=== PATIENT | male | born 2005 | race Two or more races ===

== ENCOUNTER 2025-04-28 16:31 | Emergency (ER) | payer MEDICAID, OTHER ==
[~2025-04-28] VITALS: Ht 177.8 cm; Wt 63.3 kg
--- NOTE | 2025-04-28 17:00 | ED.PDOC ---
Eye-HPI HPI Comments 19 year old male presents to the ED with a chief complaint of LT ear pain onset last night. Patient states he has bilateral ET tubes placed several years ago. Patient states he began experiencing LT ear itchiness, this morning noticed there was blood and purulent discharge. For the past few years he has been experiencing intermittent otitis media. Denies fever, chills, trauma, blurred vision, nausea, vomiting, diarrhea, hearing loss. No other symptoms or modifying factors present at this time. Chief Complaint: Earache Time Seen by MD: 16:50 Reviewed Notes: Medications, Allergies Allergies: Coded Allergies: Midazolam (Verified Allergy, Severe, 04/28/25) Information Source: Patient Mode of Arrival: Ambulatory Timing: Days Duration: Since onset Prehospital treatment: None Associated signs and symptoms: Ear Pain Past Medical History PAST MEDICAL HISTORY: Denies Surgical History: Denies all surgeries Family History Family History: Reviewed,noncontributory to illness, No family hx of Cancer, No family hx of DM, No family hx of Heart sharee, No family hx of HTN, No family hx ofKidney sharee, No family hx of Liver sharee, No family hx of Lung sharee, No family hx of Stroke Social History Smoker: Non-Smoker Alcohol: Denies ETOH Use Drugs: Denies Drug Use Lives In: Home Constitutional: denies: chills, diaphoresis, fatigue, fever, malaise, sweats, weakness, others EENTM: reports: ear discharge, ear drainage, ear pain; denies: blurred vision, double vision, ear bleeding, ear ringing, eye pain, eye redness, hearing loss, mouth pain, mouth swelling, nasal discharge, nose bleeding, nose congestion, nose pain, photophobia, tearing, throat pain, throat swelling, voice changes, others Respiratory: denies: cough, hemoptysis, orthopnea, SOB at rest, shortness of breath, SOB with excertion, stridor, wheezing, others Cardiovascular: denies: chest pain, dizzy spells, diaphoresis, Dyspnea on exertion, edema, irregular heart beat, left arm pain, lightheadedness, palpitations, PND, syncope, others Gastrointestinal: denies: abdomen distended, abdominal pain, blood streaked bowels, constipated, diarrhea, dysphagia, difficulty swallowing, hematemesis, melena, nausea, poor appetite, poor fluid intake, rectal bleeding, rectal pain, vomiting, others Genitourinary: denies: burning, dysuria, flank pain, frequency, hematuria, incontinence, penile discharge, penile sore, pain, testicle pain, testicle swel ling, urgency, others Neurological: denies: dizziness, fainting, headache, left sided numbness, left sided weakness, numbness, paresthesia, pre-existing deficit, right sided numbness, right sided weakness, seizure, speech problems, tingling, tremors, weakness, others Musculoskeletal: denies: back pain, gout, joint pain, joint swelling, muscle pain, muscle stiffness, neck pain, others Integumetry: denies: bruises, change in color, change in hair/nails, dryness, laceration, lesions, lumps, rash, wounds, others Allergic/Immunocompromised: denies: Difficulty Healing, Frequent Infections, Hives, Itching, others Hematologic/Lymphatic: denies: anemia, blood clots, easy bleeding, easy bruising, swollen glands, others Endocrine: denies: excessive hunger, excessive sweating, excessive thirst, excessive urination, flushing, intolerance to cold, intolerance to heat, unexplained weight gain, unexplained weight loss, others Psychiatric: denies: anxiety, bipolar disorder, depression, hopeless, panic disorder, schizophrenia, sleepless, suicidal, others All Other Systems: Reviewed and Negative Physical Exam General Appearance: Normal HEENT: Other (LT tM erythema, blood noted with purulent discharge. LT canal ET Tube appears in place, RT canal ET tube not visualized due to wax) Neck: Full Range of Motion, Non-Tender, Normal, Normal Inspection Respiratory: Chest Non-Tender, Lungs Clear, No Accessory Muscle Use, No Respiratory Distress, Normal Breath Sounds Cardiovascular: No Edema, No JVD, No Murmur, No Gallop, Normal Peripheral Pulses, Regular Rate/Rhythm Breast Exam: Deferred Gastrointestinal: No Organomegaly, Non Tender, No Pulsatile Mass, Normal Bowel Sounds, Soft Genitalia: Deferred Pelvic: Deferred Rectal: Deferred Extremities: No calf tenderness, Normal capillary refill, Normal inspection, Normal range of motion, Non-tender, No pedal edema Musculoskeletal : Apperance: Normal Neurologic: Alert, metalsmith II-XII nml as Tested, No Motor Deficits, Normal Affect, Normal Mood, No Sensory Deficits Cerebellar Function: Normal Reflexes: Normal Skin: Dry, Normal Color, Warm Lymphatic: No Adenopathy Was a procedure done? Was a procedure done?: No EENT DIFF Eye: Other X-Ray, Labs, Meds, VS Vital Signs Date Time Temp Pulse Resp B/P (MAP) Pulse Ox O2 Delivery O2 Flow Rate FiO2 04/28/25 16:33 97.9 91 15 142/81 99 97.9 X-Ray, Labs, Meds, VS Comment Imaging: X-rays and CT scans were reviewed and interpreted by this provider, imaging shows no fractures and no pathological disease. Pending radiology review. Laboratory: Labs reviewed and interpreted by this provider. No significant abnormalities noted. Patient has prior medical visits reviewed. Med reconciliation performed Vital signs reviewed Time of 1ST Reevaluation: 17:20 Reevaluation 1ST: Unchanged Patient Education/Counseling: Diagnosis, Treatment, Need For Follow Up (Follow up with PCP in next available appointment. Return to emergency department if symptoms worsen.) Family Education/Counseling: No Family Present SEPSIS Sepsis Screen Date sepsis recognized/suspect: Apr 28, 2025 Time Sepsis recognized/suspect: 1634 Recent Procedure: No On Antibiotic Therapy: No Respiratory Rate >20: No Heart Rate >90: No Temp<36 C (96.8 F) or >38.3 C: No SBP <90 or MAP <65 mmHG: No New Acute Mental Status Change: No Is the patient on CPAP, BIPAP,: No Vital Signs Date Time Temp Pulse Resp B/P (MAP) Pulse Ox O2 Delivery O2 Flow Rate FiO2 04/28/25 16:33 97.9 91 15 142/81 99 97.9 Departure 1 Departure Time of Disposition: 17:05 Impression: Primary Impression: Eustachian tube dysfunction Qualified Codes: H69.92 - Unspecified Eustachian tube disorder, left ear Additional Impression: Otitis externa Qualified Codes: H60.312 - Diffuse otitis externa, left ear Disposition: 01 HOME / SELF CARE / HOMELESS Condition: Stable e-Prescriptions Ciprofloxacin-Dexamethasone (Ciprofloxacin/Dexamethaso 0.3-0.1 %) 1 Damari Damari 3 DAMARI OT BID for 5 Days, #10 ML Prov: SONIA SHERWOOD AMMONIA BOX TENDER 04/28/25 Pseudoephedrine Hcl (Sudafed Nasal Decongestan) 30 Mg Tab 1 TAB PO TID PRN, #30 TAB Prov: SONIA SHERWOOD 04/28/25 Discharged With: Self Critical Care Note Critical Care Time?: No Stability Stability form required: No Heart Score Heart Score: Heart Score Response (Comments) Value History N/A 0 EKG N/A 0 Age N/A 0 Risk Factors N/A 0 Troponin N/A 0 Total 0 I personally scribed for SONIA SHERWOOD ([email or web address]) on 04/28/25 at 17:00. Electronically submitted by Jennifer Ward ([email or web address]). SONIA SHERWOOD Apr 28, 2025 17:00
[2025-04-28] MEDS ORDERED: PSEU30TA3 PO (17:08)
[2025-04-28] MEDS ORDERED: CIPR1SUS8 OT (17:08)
[2025-04-28 17:10] VITALS: BP 142/93; PULSE 78; RESP 14; TEMP 98.5; O2SAT 99
== END 2025-04-28 17:13 | disposition home or self-care (01) ==
LOC: ER 16:31
DX: H69.92 Unspecified Eustachian tube disorder, left ear (principal); H66.92 Otitis media, unspecified, left ear